=== PATIENT | male | born 1960 | race Caucasian/White ===

== ENCOUNTER 2018-07-12 20:45 | Emergency (ER) | payer OTHER ==
[2018-07-12] MEDS ORDERED: fentaNYL CITR 100 MCG/2 ML AMP ONE (20:55)
[2018-07-12] MEDS ORDERED: KETAMINE HCL 500 MG/5 ML VIAL IVP ONE (21:00)
[2018-07-12] MEDS ORDERED: fentaNYL CITR 100 MCG/2 ML AMP IVP ONE (21:05)
[2018-07-12] MEDS ORDERED: IOPAMIDOL 76% 75 ML INFUS BTL 75 ML ONE (21:09)
[2018-07-12] MEDS ORDERED: NS(*) 0.9% 50 ML BAG 50 ML ONE (21:09)
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
[2018-07-12 21:13] LABS: PLATELET COUNT, AUTOMATED 240 K/uL (150-450)
[2018-07-12 21:21] LABS: INR 1.02
[2018-07-12] MEDS ORDERED: NS(*) 0.9% 1000 ML BAG 1,000 ML IV ONE (21:30)
[2018-07-12] MEDS ORDERED: ALBUTEROL/IPRATROPIUM 3 ML NEB ONE (22:27)
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
[2018-07-12 22:45] VITALS: BP 153/112
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
--- NOTE | 2018-07-13 00:49 | RADIOLOGY IMAGING REPORT ---
FACILITY: PATIENT NAME: Atilio Prado : 1960 MR: [id number] V: [id number] EXAM DATE: ORDERING PHYSICIAN: NIDIA HOSKINS TECHNOLOGIST: Location: [facility] - [place] Patient: Atilio Prado : 1960 Visit/Account:[id number] Date of Sevice: 07/13/2018 AP CHEST 07/13/2018 12:04 AM. INDICATION: TUBE PLACEMENT COMPARISON: Radiographs and CT 07/12/2018. FINDINGS/IMPRESSION: Unchanged right chest tube. New endotracheal tube terminates in the mid thoracic trachea. Slightly improved atelectasis in the right mid to upper lung. Question tiny residual right apical pneumothora x. No pleural effusion. Heart size is normal. Report Dictated By: Benigno Spence MD at 07/13/2018 12:45 AM Report E-Signed By: Benigno Spence MD at 07/13/2018 12:46 AM WSN:[id number]
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
[2018-07-13] MEDS ORDERED: ETOMIDATE 40 MG/20 ML IVP ONE (05:00)
[2018-07-13] MEDS ORDERED: NS(*) 0.9% 1000 ML BAG 1,000 ML IV ONE (05:00)
[2018-07-13] MEDS ORDERED: SUCCINYLCHOL CHL 200MG/10ML VL IVP ONE (05:00)
[2018-07-13] MEDS ORDERED: KETAMINE HCL 500 MG/5 ML VIAL IVP ONE (05:00)
[2018-07-13] MEDS ORDERED: fentaNYL CITR 100 MCG/2 ML AMP IVP ONE (05:00)
== END 2018-07-13 00:22 | disposition short-term general hospital (02) ==
LOC: ER 20:50
DX: J98.2 Interstitial emphysema (principal); J93.9 Pneumothorax, unspecified; S12.111A Posterior displaced Type II dens fracture, initial encounter for closed fracture; S22.32XA Fracture of one rib, left side, initial encounter for closed fracture; S42.102A Fracture of unspecified part of scapula, left shoulder, initial encounter for closed fracture; V49.88XA Car occupant (driver) (passenger) injured in other specified transport accidents, initial encounter
CPT/HCPCS: 31500; 32551; 70450; 71045; 71260; 72125; 72170; 74177; 83605; 84484; 85025; 85610; 85730; 93005; 94002; 94640; 96361; 96374; 96375; 99285; C1758; J0330; J3010; J7030; J7050; J7620; L0172; Q9967; 82040; 82247; 82310; 82374; 82435; 82565; 82947; 84075; 84132; 84155; 84295; 84450; 84460; 84520

== ENCOUNTER → 2018-07-12 | Outpatient (CLI) | payer OTHER | LOC: AMB 20:07 | PROVIDERS: ATTEND Nurse Practitioner | DX: R06.02 Shortness of breath (principal); R07.89 Other chest pain; M54.2 Cervicalgia; R53.1 Weakness; V48.1XXA Car passenger injured in noncollision transport accident in nontraffic accident, initial encounter; Y92.411 Interstate highway as the place of occurrence of the external cause | CPT/HCPCS: A0425; A0427 ==

== ENCOUNTER → 2018-07-12 | Outpatient (REF) | LOC: AMB 23:31 | PROVIDERS: ATTEND Nurse Practitioner | DX: Z76.89 Persons encountering health services in other specified circumstances (principal) ==